=== PATIENT | female | born 1940 | race African-American/Black ===

== ENCOUNTER 2017-09-25 02:23 | Inpatient (IN) | payer OTHER ==
[~2017-09-25] VITALS: Ht 160 cm; Wt 49.9 kg
== END 2017-09-30 17:53 | disposition home or self-care (01) | DRG 470 ==
LOC: ER 02:23 → SURG 10:36 → MEDI 10:36 → SEC-K 10:36 → SURG 17:36 → MEDI 09-30 04:16
PROVIDERS: Orthopaedic Surgery
PROC: 0MBM0ZZ Excision of Left Hip Bursa and Ligament, Open Approach (ICD-10-PCS; 2017-09-26)
PROC: 0SRS0JZ Replacement of Left Hip Joint, Femoral Surface with Synthetic Substitute, Open Approach (ICD-10-PCS; principal; 2017-09-26 07:00)
DX: S72.092A Other fracture of head and neck of left femur, initial encounter for closed fracture (principal); D62 Acute posthemorrhagic anemia; M16.12 Unilateral primary osteoarthritis, left hip; M70.62 Trochanteric bursitis, left hip; W18.39XA Other fall on same level, initial encounter; Y93.89 Activity, other specified; Y92.89 Other specified places as the place of occurrence of the external cause; Y99.8 Other external cause status

== ENCOUNTER 2018-05-28 08:35 | Outpatient (CLI) | payer OTHER | END 2018-05-28 08:53 | disposition home or self-care (01) | LOC: LAB 08:35 | DX: M25.552 Pain in left hip (principal); M25.532 Pain in left wrist; M79.642 Pain in left hand; E55.9 Vitamin D deficiency, unspecified; M85.89 Other specified disorders of bone density and structure, multiple sites; E21.3 Hyperparathyroidism, unspecified; E88.89 Other specified metabolic disorders; M81.8 Other osteoporosis without current pathological fracture; E83.42 Hypomagnesemia; E56.1 Deficiency of vitamin K; D64.89 Other specified anemias; M06.4 Inflammatory polyarthropathy ==

== ENCOUNTER 2018-06-25 11:01 | Outpatient (CLI) | payer OTHER | END 2018-06-25 11:26 | disposition home or self-care (01) | LOC: NUCLEAR 11:01 | DX: M81.0 Age-related osteoporosis without current pathological fracture (principal) ==

== ENCOUNTER → 2019-03-10 | Outpatient (CLI) | payer OTHER | END | disposition home or self-care (01) | LOC: RAD 09:17 | DX: M25.552 Pain in left hip (principal); M79.652 Pain in left thigh ==